=== PATIENT | male | born 1975 | race Caucasian/White ===

== ENCOUNTER → 2024-06-26 16:26 | Outpatient (REF) | payer SELFPAY | LOC: RAD 16:26 | PROVIDERS: ATTENDING PHYSICIAN Internal Medicine | DX: Z00.00 Encounter for general adult medical examination without abnormal findings (principal); E78.01 Familial hypercholesterolemia; Z82.49 Family history of ischemic heart disease and other diseases of the circulatory system | CPT/HCPCS: 75571 ==